=== PATIENT | female | born 1990 | race Caucasian/White ===

== ENCOUNTER 2022-02-19 22:21 | Outpatient (CLI) ==
[~2022-02-19] VITALS: Ht 160 cm; Wt 78.0 kg
[2022-02-19 22:53] VITALS: BP 114/55
[2022-02-19] MEDS ORDERED: diphenhydrAMINE 25MG CAP PO ONE (23:15)
[2022-02-19] MEDS ORDERED: PRENTAB9 PO (23:42)
[2022-02-19] MEDS ORDERED: FOLI400T13 PO (23:44)
[2022-02-19] MEDS ORDERED: LAMI300T PO (23:44)
[2022-02-19] MEDS ORDERED: ZYRTTAB8 PO (23:44)
== END 2022-02-19 23:30 | disposition home or self-care (01) ==
LOC: M LDO 22:21
PROVIDERS: ATTEND Obstetrics & Gynecology
DX: O26.893 Other specified pregnancy related conditions, third trimester (principal); R21 Rash and other nonspecific skin eruption; Z3A.29 29 weeks gestation of pregnancy
CPT/HCPCS: 59025; G0463

== ENCOUNTER 2022-03-03 10:28 | Outpatient (CLI) | payer OTHER ==
[~2022-03-03] VITALS: Ht 160 cm; Wt 78.3 kg
[~2022-03-03 10:28] MED LIST: FOLI400T13 PO; LAMI300T PO; PRENTAB9 PO; ZYRTTAB8 PO
[2022-03-03 10:44] VITALS: BP 119/59
== END 2022-03-03 13:03 | disposition home or self-care (01) ==
LOC: M LDO 10:28
PROVIDERS: ATTEND Registered Nurse
DX: O9A.213 Injury, poisoning and certain other consequences of external causes complicating pregnancy, third trimester (principal); O36.8130 Decreased fetal movements, third trimester, not applicable or unspecified; Z3A.31 31 weeks gestation of pregnancy; T14.8XXA Other injury of unspecified body region, initial encounter; X58.XXXA Exposure to other specified factors, initial encounter; Y92.9 Unspecified place or not applicable; Z88.0 Allergy status to penicillin; Z88.6 Allergy status to analgesic agent; Z88.8 Allergy status to other drugs, medicaments and biological substances
CPT/HCPCS: 59025; 76815; G0378; G0463

== ENCOUNTER 2022-05-03 06:40 | Inpatient (IN) | payer OTHER ==
[2022-05-03] VITALS (32 sets, daily range): BP systolic 94–131; BP diastolic 51–80
[~2022-05-03] VITALS: Ht 160 cm; Wt 82.1 kg
[2022-05-03] MEDS ORDERED: TUMS500C PO (07:07)
[2022-05-03] MEDS ORDERED: FOLI400T13 PO (07:07)
[2022-05-03] MEDS ORDERED: HOME MED LIST COMPLETE! XX SCH (07:10)
[2022-05-03] MEDS ORDERED: TRANEXAMIC ACID INJection 1,000 MG in NS 100 ML IV PRN (08:45)
[2022-05-03] MEDS ORDERED: OXYTOCIN DRIP 30 UNITS in IV 1 EA IV SCH (08:45)
[2022-05-03] MEDS ORDERED: METHYLERGONOVINE MALEATE 0.2 MG/ML VIAL (J2210) IM PRN (08:45)
[2022-05-03] MEDS ORDERED: LIDOCAINE 1% MDV 20ML VIAL INFIL PRN (08:45)
[2022-05-03] MEDS ORDERED: CARBOPROST TROMETHAMINE 250 MCG/ML AMP IM PRN (08:45)
[2022-05-03 09:22] LABS: HEMATOCRIT 33.3 % (36.0-47.0); HEMOGLOBIN 10.8 g/dl (12.0-15.5); MEAN CORPUSCULAR HEMOGLOBIN 27.9 pg (27.0-33.0); MEAN CORPUSCULAR HGB CONC 32.4 g/dl (32.0-36.5); PLATELET COUNT, AUTOMATED 145 10^3/uL (150-450); RED BLOOD COUNT 3.87 10^6/uL (4.00-5.40); WHITE BLOOD COUNT 6.5 10^3/uL (4.0-10.0)
[2022-05-03] MEDS: LR 1,000 ML IV SCH ×2 (09:58→18:00)
[2022-05-03] MEDS ORDERED: LAMO100T80 PO (11:25)
[2022-05-03] MEDS: CALCIUM CARBONATE 500 MG CHEW U/D PO PRN (11:54)
[2022-05-03] MEDS ORDERED: BUTORPHANOL 2 MG/ML 1ML VIAL IV ONE (19:45)
[2022-05-03] MEDS ORDERED: PROMETHAZINE 25MG/ML 1ML VIAL IV ONE (19:45)
[2022-05-03] MEDS: lamoTRIgine 100MG TAB PO SCH (21:10)
[2022-05-04] VITALS (24 sets, daily range): BP systolic 88–122; BP diastolic 50–64
[2022-05-04] MEDS ORDERED: NALOXONE INJ 0.4MG/1ML VIAL IV PRN (01:25)
[2022-05-04] MEDS ORDERED: FENTANYL/ROPIVACAINE/NACL BAG 100 ML EPIDURAL SCH (01:25)
[2022-05-04] MEDS ORDERED: LR 500 ML IV PRN (01:25)
[2022-05-04] MEDS ORDERED: ePHEDrine SULFATE 25 MG/5 ML(5MG/ML) SYRINGE IVP PRN (01:25)
[2022-05-04] MEDS ORDERED: EPIDURAL/PCA KEYS XX PRN (01:25)
[2022-05-04] MEDS ORDERED: diphenhydrAMINE 50MG/ML VIAL IV PRN (01:25)
[2022-05-04] MEDS ORDERED: DOCUSATE SODIUM 100MG CAPSULE PO PRN (07:00)
[2022-05-04] MEDS ORDERED: DIBUCAINE 1% OINTMENT 30GM TOP PRN (07:00)
[2022-05-04] MEDS ORDERED: MOM 30ML SUSPENSION UDC PO PRN (07:00)
[2022-05-04] MEDS: PRENATAL VITAMINS CHEWABLE TABLET PO SCH (08:58)
[2022-05-04] MEDS: ACETAMINOPHEN 500 MG TAB PO PRN ×2 (08:59→15:31)
[2022-05-04] MEDS: ONDANSETRON 4MG 2ML VIAL IV PRN (08:59)
[2022-05-04] MEDS ORDERED: PRENATAL VITAMINS CHEWABLE TABLET PO SCH (09:00)
[2022-05-04] MEDS: IBUPROFEN 800 MG TAB PO PRN ×2 (13:45→20:54)
[2022-05-04] MEDS: lamoTRIgine 100MG TAB PO SCH (20:52)
[2022-05-04] MEDS: CALCIUM CARBONATE 500 MG CHEW U/D PO PRN (21:00)
[2022-05-05] MEDS: ONDANSETRON 4MG 2ML VIAL IV PRN (04:38)
[2022-05-05 06:00] VITALS: BP 118/62
[2022-05-05] MEDS: PRENATAL VITAMINS CHEWABLE TABLET PO SCH (08:34)
[2022-05-05] MEDS: ACETAMINOPHEN 500 MG TAB PO PRN (08:35)
[2022-05-06] MEDS ORDERED: MEASLES,MUMPS,RUBELLA VACCINE INJ (MMR-II) (90707) SC.IMMUN ONE (09:00)
== END 2022-05-05 15:08 | disposition home or self-care (01) | DRG 807 ==
LOC: M LDO 06:40 → M LDI 08:31 → M OBS 05-04 09:41
PROVIDERS: ADMIT Advanced Practice Midwife; ATTEND Obstetrics & Gynecology
PROC: 3E033VJ Introduction of Other Hormone into Peripheral Vein, Percutaneous Approach (ICD-10-PCS; 2022-05-03)
PROC: 10E0XZZ Delivery of Products of Conception, External Approach (ICD-10-PCS; principal; 2022-05-04)
PROC: 10907ZC Drainage of Amniotic Fluid, Therapeutic from Products of Conception, Via Natural or Artificial Opening (ICD-10-PCS; 2022-05-04)
DX: O99.354 Diseases of the nervous system complicating childbirth (principal); Z37.0 Single live birth; G40.909 Epilepsy, unspecified, not intractable, without status epilepticus; Z3A.39 39 weeks gestation of pregnancy; Z88.0 Allergy status to penicillin; Z88.6 Allergy status to analgesic agent; Z88.8 Allergy status to other drugs, medicaments and biological substances; Z79.899 Other long term (current) drug therapy

== ENCOUNTER → 2025-02-13 | Outpatient (CLI) | payer OTHER ==
[~2025-02-13] MED LIST changes: +LAMO100T80 PO; +TUMS500C PO
== END ==
LOC: M WHC 09:41
PROVIDERS: ATTEND Student in an Organized Health Care Education/Training Program
DX: N64.59 Other signs and symptoms in breast (principal); N64.4 Mastodynia; R92.313 Mammographic fatty tissue density, bilateral breasts
CPT/HCPCS: 76642; 77065; G0279